=== PATIENT | male | born 1950 | race Hispanic/Latino ===

== ENCOUNTER 2021-04-10 13:53 | Emergency (ER) | payer MEDICARE ==
[~2021-04-10] VITALS: Ht 165.1 cm; Wt 120.4 kg
[~2021-04-10 13:53] MED LIST: ALTOPREV20 MG PO; CIPROFLOXACN500 MG PO; DOAN'S RS325 MG OR; EC-81 ASPIRIN81 MG PO; GABAPENTIN300 MG PO; LISINOP/HCTZ1 TAB PO; LISINOPRIL20 MG PO; METFORMIN500 M2 PO; METFORMIN500 MG PO; METHOCARBAMOL500 MG PO; NAPROSYN500 MG OR; ULTRAM50 M1 PO
[2021-04-10] MEDS ORDERED: TORADOL PO (15:31)
[2021-04-10] MEDS ORDERED: FLEXERIL5 M1 PO (15:31)
[2021-04-10 15:37] VITALS: BP 134/67
== END 2021-04-10 15:40 | disposition home or self-care (01) ==
LOC: ED 13:53
DX: M62.838 Other muscle spasm (principal)

== ENCOUNTER 2024-06-18 16:38 | Emergency (ER) | payer MEDICARE ==
[2024-06-18] VITALS (8 sets, daily range): BP systolic 98–147; BP diastolic 62–69
[~2024-06-18] VITALS: Ht 165.1 cm; Wt 127.0 kg
[~2024-06-18 16:38] MED LIST changes: +FLEXERIL5 M1 PO; +HYDROCODONE BIT1 TA9 PO; +TAMSULOSIN HCL0.4 MG PO; +TORADOL PO; +[UNRECOGNIZED DRUG - OTHER]
[2024-06-18] MEDS ORDERED: MORPHINE SULFATE 4 MG/ML VIAL IV STA (19:53)
[2024-06-18] MEDS ORDERED: SODIUM CHLORIDE 0.9% 1,000 ML IV STA (19:53)
[2024-06-18 20:05] LABS: URINE BILIRUBIN - DIPSTICK Negative (NEGATIVE); URINE BLOOD DIPSTICK Small (NEGATIVE); URINE COLOR Yellow; URINE GLUCOSE - DIPSTICK Negative (NEGATIVE); URINE KETONE Negative (NEGATIVE); URINE LEUK ESTERASE Moderate (NEGATIVE); URINE NITRITE - DIPSTICK Negative (Negative); URINE PROTEIN - DIPSTICK 100 mg/dL (NEG-TRACE); URINE SPECIFIC GRAVITY 1.015
[2024-06-18 20:08] LABS: URINE WBC 20-50 WBC/hpf (0-5)
[2024-06-18 20:09] LABS: URINE BACTERIA MANY hpf
[2024-06-18 20:10] LABS: BASO% 0.1 % (0-3); EOS% 0.1 % (0-8); HEMATOCRIT 43.6 % (39.0-50.0); HEMOGLOBIN 14.7 g/dl (14.0-18.0); IMMATURE GRANULOCYTES 1.2 % (0.0-5.0); LYMPH% 3.5 % (15-41); MEAN CORPUSCULAR HGB 29.3 pG CALC (26.0-32.0); MEAN CORPUSCULAR HGB CONC 33.7 g/dL CAL (32.0-36.0); MONO% 3.7 % (2-13); NEUT# 15.03 thou/uL (1.82-7.42); NEUT% 91.4 % (42-76); RED BLOOD COUNT 5.01 mill/uL (4.70-6.10); RED CELL DISTRI WIDTH 13.7 % (11.5-15.5)
[2024-06-18 20:26] LABS: ALBUMIN 3.7 g/dL (3.2-5.0); CREATININE 1.6 mg/dL (0.7-1.3); POTASSIUM 4.2 mmol/l (3.5-5.1); TOTAL PROTEIN 6.7 g/dL (6.3-8.2)
[2024-06-18 20:27] LABS: BILIRUBIN, TOTAL 1.3 mg/dL (0.2-1.3)
[2024-06-18] MEDS ORDERED: cefTRIAXone SODIUM 2 GM in SODIUM CHLORIDE 0.9% 100 ML IV ONE (20:30)
[2024-06-18] MEDS ORDERED: KETOROLAC TROMETHAMINE 15 MG/ML SDV IV ONE (22:50)
[2024-06-18] MEDS ORDERED: TORADOL PO (22:51)
[2024-06-18] MEDS ORDERED: AMOX/K CLAV875 M1 PO (22:51)
[2024-06-18] MEDS ORDERED: ZOFRAN4 MG/TAB PO (22:51)
[2024-06-19] MEDS ORDERED: TAMSULOSIN0.4 MG PO (09:24)
--- NOTE | 2024-06-19 10:22 | NUR ---
Blood culture ID results showing E coli. Called and spoke to patient's daughter and informed her of results and need to return to ED. She states pt is still very sick and she will bring him immediately back to the ER.
== END 2024-06-18 23:16 | disposition home or self-care (01) ==
LOC: ED 16:38
PROVIDERS: Nurse Practitioner
DX: N13.6 Pyonephrosis (principal); B96.20 Unspecified Escherichia coli [E. coli] as the cause of diseases classified elsewhere; E11.9 Type 2 diabetes mellitus without complications; Z79.84 Long term (current) use of oral hypoglycemic drugs
CPT/HCPCS: J0696; J1885

== ENCOUNTER 2024-06-19 11:16 | Observation (INO) | payer MEDICARE ==
[2024-06-19] VITALS (21 sets, daily range): BP systolic 107–147; BP diastolic 55–79
[~2024-06-19] VITALS: Ht 165.1 cm; Wt 138.0 kg
[~2024-06-19 11:16] MED LIST changes: +AMOX/K CLAV875 M1 PO; +TAMSULOSIN0.4 MG PO; +ZOFRAN4 MG/TAB PO
[2024-06-19] MEDS ORDERED: SODIUM CHLORIDE 0.9% 1,000 ML IV ONE (11:30)
[2024-06-19] MEDS ORDERED: cefTRIAXone SODIUM 2 GM in SODIUM CHLORIDE 0.9% 100 ML IV ONE (11:30)
[2024-06-19 12:08] LABS: HEMATOCRIT 42.3 % (39.0-50.0); HEMOGLOBIN 14.4 g/dl (14.0-18.0); MEAN CELL VOLUME 87.6 fL CALC (80.0-100.0); MEAN CORPUSCULAR HGB 29.8 pG CALC (26.0-32.0); RED BLOOD COUNT 4.83 mill/uL (4.70-6.10)
[2024-06-19 12:25] LABS: ALBUMIN 3.2 g/dL (3.2-5.0); BILIRUBIN, TOTAL 1.1 mg/dL (0.2-1.3); CREATININE 1.6 mg/dL (0.7-1.3); POTASSIUM 4.3 mmol/l (3.5-5.1)
[2024-06-19 12:28] LABS: PLATELET COUNT 95 thou/uL (130-400)
[2024-06-19 12:29] LABS: BAND 9 % (0-8); MANUAL DIFFERENTIAL YES; PLATELET ESTIMATE SLIGHT DECREASE
[2024-06-19] MEDS ORDERED: ACETAMINOPHEN 325 MG/TAB PO PRN (16:10)
[2024-06-19] MEDS ORDERED: SODIUM CHLORIDE 0.9% 1,000 ML IV PRN (16:10)
[2024-06-19] MEDS ORDERED: MAGNESIUM HYDROXIDE 30 ML UDC PO PRN (16:10)
[2024-06-19] MEDS ORDERED: ONDANSETRON HCl 4 MG/2 ML SDV IV PRN (16:15)
[2024-06-19] MEDS ORDERED: INSULIN LISPRO 100 UNITS/ML ML SC SCH (17:00)
[2024-06-19] MEDS ORDERED: HYDROmorphone HCL 2 MG/AMP IV PRN (20:00)
[2024-06-19] MEDS ORDERED: Heparin SODIUM (Porcine) 5,000 UNITS/ML SDV SC SCH (22:00)
[2024-06-20] VITALS (9 sets, daily range): BP systolic 120–165; BP diastolic 63–86
[2024-06-20 07:03] LABS: BASO% 0.2 % (0-3); EOS% 1.3 % (0-8); HEMATOCRIT 40.7 % (39.0-50.0); HEMOGLOBIN 13.5 g/dl (14.0-18.0); IMMATURE GRANULOCYTES 0.3 % (0.0-5.0); LYMPH% 5.3 % (15-41); MEAN CELL VOLUME 88.7 fL CALC (80.0-100.0); MEAN CORPUSCULAR HGB 29.4 pG CALC (26.0-32.0); MEAN CORPUSCULAR HGB CONC 33.2 g/dL CAL (32.0-36.0); MONO% 4.4 % (2-13); NEUT# 8.06 thou/uL (1.82-7.42); NEUT% 88.5 % (42-76); RED BLOOD COUNT 4.59 mill/uL (4.70-6.10); RED CELL DISTRI WIDTH 14.2 % (11.5-15.5)
[2024-06-20 07:05] LABS: ALBUMIN 2.8 g/dL (3.2-5.0); BILIRUBIN, TOTAL 0.8 mg/dL (0.2-1.3); CREATININE 1.5 mg/dL (0.7-1.3); MAGNESIUM 2.3 mg/dL (1.6-2.3); POTASSIUM 4.3 mmol/l (3.5-5.1); TOTAL PROTEIN 5.6 g/dL (6.3-8.2)
[2024-06-20] MEDS ORDERED: ISOVUE-300 (Iopamidol) 100 ML SDV IV ONE (07:22)
[2024-06-20] MEDS ORDERED: STERILE WATER FOR IRRIGATION 1,000 ML BTL IR ONE (07:23)
[2024-06-20] MEDS ORDERED: SODIUM CHLORIDE 1,000 ML BTL IR ONE (07:23)
[2024-06-20] MEDS ORDERED: TAMSULOSIN HCL 0.4 MG CAP PO SCH (08:00)
[2024-06-20] MEDS ORDERED: SODIUM CHLORIDE 0.9% 10 ML SYR ONE (08:08)
[2024-06-20] MEDS ORDERED: SODIUM CHLORIDE 0.9% 1,000 ML IV ONE (08:21)
[2024-06-20] MEDS ORDERED: FAMOTIDINE 10MG/ML 2ML SDV IV ONE (08:32)
[2024-06-20] MEDS ORDERED: PROPOFOL 200 MG/20 ML VIAL IV ONE (10:59)
[2024-06-20] MEDS ORDERED: LIDOCAINE HCL 2% 2ML SDV IV ONE (10:59)
[2024-06-20] MEDS ORDERED: cefTRIAXone SODIUM 2 GM in SODIUM CHLORIDE 0.9% 100 ML IV SCH (11:00)
[2024-06-20] MEDS ORDERED: TAMSULOSIN0.4 MG PO (11:32)
[2024-06-20] MEDS ORDERED: CIPROFLOXACN500 MG PO (14:47)
== END 2024-06-20 15:11 | disposition home or self-care (01) ==
LOC: ED 11:16 → ED-I 12:27 → ED 12:48 → MS2 12:49
PROVIDERS: Family Medicine; Nurse Practitioner Family; ADMIT Internal Medicine; ATTEND Internal Medicine
PROC: 0T778DZ Dilation of Left Ureter with Intraluminal Device, Via Natural or Artificial Opening Endoscopic (ICD-10-PCS; principal; 2024-06-20)
DX: N13.6 Pyonephrosis (principal); B96.20 Unspecified Escherichia coli [E. coli] as the cause of diseases classified elsewhere; R78.81 Bacteremia; I10 Essential (primary) hypertension; E11.9 Type 2 diabetes mellitus without complications; N40.0 Benign prostatic hyperplasia without lower urinary tract symptoms; Z79.84 Long term (current) use of oral hypoglycemic drugs
CPT/HCPCS: C1769; J0696; J1815; Q9966

== ENCOUNTER 2024-07-11 05:37 | Day surgery (SDC) | payer MEDICARE ==
[~2024-07-11] VITALS: Ht 165.1 cm; Wt 127.0 kg
[2024-07-11] MEDS ORDERED: FAMOTIDINE 10MG/ML 2ML SDV IV ONE (05:57)
[2024-07-11] MEDS ORDERED: SODIUM CHLORIDE 0.9% 1,000 ML IV ONE (05:58)
[2024-07-11] MEDS ORDERED: Levofloxacin 500 mg Premix 100 ML IV ONE (06:44)
[2024-07-11 08:54] VITALS: BP 163/81
[2024-07-11] MEDS ORDERED: SODIUM CHLORIDE 1,000 ML BTL IR ONE (09:35)
[2024-07-11] MEDS ORDERED: SODIUM CHLORIDE 3,000 ML BAG FOR IRRIGATION IR ONE (09:35)
[2024-07-11] MEDS ORDERED: ROCURONIUM BROMIDE 10 MG/ML 5ML VIAL IV ONE (14:42)
[2024-07-11] MEDS ORDERED: LIDOCAINE HCL 2% 2ML SDV IV ONE (14:42)
[2024-07-11] MEDS ORDERED: SUCCINYLCHOLINE CHLORIDE 20 MG/ML 10ML VIAL IV ONE (14:42)
[2024-07-11] MEDS ORDERED: SUGAMMADEX SODIUM 200 MG/2 ML SDV IV ONE (14:42)
[2024-07-11] MEDS ORDERED: PROPOFOL 200 MG/20 ML VIAL IV ONE (14:42)
== END 2024-07-11 09:19 | disposition home or self-care (01) ==
LOC: ORM 05:37
PROVIDERS: ATTEND Urology
PROC: 0TC18ZZ Extirpation of Matter from Left Kidney, Via Natural or Artificial Opening Endoscopic (ICD-10-PCS; principal; 2024-07-11)
PROC: 0T778DZ Dilation of Left Ureter with Intraluminal Device, Via Natural or Artificial Opening Endoscopic (ICD-10-PCS; 2024-07-11)
DX: N20.2 Calculus of kidney with calculus of ureter (principal); E11.9 Type 2 diabetes mellitus without complications; N40.1 Benign prostatic hyperplasia with lower urinary tract symptoms; N13.8 Other obstructive and reflux uropathy
CPT/HCPCS: J1956